=== PATIENT | female | born 1975 | race Caucasian/White ===

== ENCOUNTER 2016-12-22 19:04 | Emergency (ER) | payer OTHER ==
--- NOTE | 2016-12-23 19:37 | ER ---
ADMIT: 12/22/2016 RM/LOC: ER [facility] MR#: [id number] [id number] RAISA TORRES [address] [place] [id number] Emergency Room Report SEX: F AGE: 41 : 1975 DATE: 12/22/2016 The patient is a 41-year-old female with chronic pain. Injured her right anterior chest wall carrying furniture that was let go by her work mate and then bruised her right chest today. Exam remarkable for nontoxic, afebrile female with contusion noted beneath her right clavicle. Exam otherwise unremarkable. Chest x-ray and right clavicle film negative, no evidence pneumothorax or rib fracture. The patient given Toradol, Dilaudid, and Reglan IM with improvement of pain. Continue hydrocodone, ibuprofen, ice, and rest. Follow up Dr. Campos as needed. Godfrey Rojas MD/ margi JOB #: [id number] CC: Godfrey Rojas MD, Attending Physician Jonathon Campos MD
== END 2016-12-22 20:15 | disposition home or self-care (01) ==
LOC: ER 19:04
DX: S20.211A Contusion of right front wall of thorax, initial encounter (principal); E10.9 Type 1 diabetes mellitus without complications; E78.5 Hyperlipidemia, unspecified; Z79.4 Long term (current) use of insulin; Z79.899 Other long term (current) drug therapy; Z98.890 Other specified postprocedural states; Z90.49 Acquired absence of other specified parts of digestive tract; X50.0XXA Overexertion from strenuous movement or load, initial encounter; Y92.009 Unspecified place in unspecified non-institutional (private) residence as the place of occurrence of the external cause